=== PATIENT | female | born 1935 | race Caucasian/White ===

== ENCOUNTER 2025-06-28 01:33 | Emergency (ER) | payer OTHER ==
[~2025-06-28] VITALS: Ht 165.1 cm; Wt 49.9 kg
[2025-06-28 02:03] LABS: PLATELET COUNT (AUTO) 242 K/uL (179-408); RED BLOOD CELL COUNT(AUTO) 4.11 MIL/uL (3.63-4.92); RED CELL DISTRIBUTION WIDTH 17.1 % (12.3-17.7); WHITE BLOOD COUNT (AUTO) 6.7 K/uL (3.8-11.8)
[2025-06-28 02:11] LABS: CREATININE 0.9 mg/dL (0.6-1.3); SODIUM SERUM 139 mmol/L (136-145); UREA NITROGEN, BLOOD 23 mg/dL (7-18)
[2025-06-28 02:17] LABS: ASPARTATE AMINOTRANSFERASE 27 U/L (15-37); TOTAL PROTEIN, SERUM 7.3 g/dL (6.4-8.2)
[2025-06-28] MEDS ORDERED: ONDA4TAB5 PO (02:40)
[2025-06-28] MEDS ORDERED: LIDO1ADH71 (02:40)
[2025-06-28] MEDS ORDERED: DABI150C PO (02:40)
[2025-06-28] MEDS ORDERED: CHOL2000 PO (02:40)
[2025-06-28] MEDS ORDERED: TIOT4MIS3 IH (02:40)
[2025-06-28] MEDS ORDERED: SIMV-46 PO (02:40)
[2025-06-28] MEDS ORDERED: LISI-782 PO (02:40)
[2025-06-28] MEDS ORDERED: FOLI0.8T2 PO (02:40)
[2025-06-28] MEDS ORDERED: LORAZEPAM 2 MG/1 ML VIAL ONE (03:02)
[2025-06-28] MEDS: LORAZEPAM 0.5 MG TABLET PO ONE (03:07)
[2025-06-28] MEDS ORDERED: FLEET ENEMA 133 ML BOTTLE RC ONE (03:18)
[2025-06-28] MEDS: MINERAL OIL FLEET ENEMA 133 ML BOTTLE RC ONE (03:25)
[2025-06-28] MEDS ORDERED: POLY17PO4 PO (03:27)
[2025-06-28 04:36] VITALS: BP 150/78; O2SAT 99
== END 2025-06-28 04:37 | disposition home or self-care (01) ==
LOC: ER 01:38
DX: K59.00 Constipation, unspecified (principal); R10.84 Generalized abdominal pain; F03.90 Unspecified dementia, unspecified severity, without behavioral disturbance, psychotic disturbance, mood disturbance, and anxiety; Z79.01 Long term (current) use of anticoagulants; Z79.899 Other long term (current) drug therapy; Z86.73 Personal history of transient ischemic attack (TIA), and cerebral infarction without residual deficits
CPT/HCPCS: 99284; 80053; 83690; 83735; 85025; 86140; 36415; 83605; J2060; A4606; A4663